=== PATIENT | female | born 1990 | race Caucasian/White ===

== ENCOUNTER 2020-11-08 20:34 | Inpatient (IN) | payer OTHER, SELFPAY ==
[~2020-11-08] VITALS: Ht 167.6 cm; Wt 72.6 kg
[2020-11-08 21:04] VITALS: BP 109/61
[2020-11-08] MEDS ORDERED: SODIUM CHLORIDE FLUSH 10 ML SYR IVF STA (21:10)
[2020-11-08 21:36] LABS: BASOPHILS % (AUTO) 0.2 % (0.0-2.0); EOSINOPHILS % (AUTO) 0.5 % (0.0-4.0); HEMATOCRIT 34.5 % (36-48); HEMOGLOBIN 11.1 g/dL (12.0-16.0); LYMPHOCYTES # (AUTO) 1.7 K/uL (2.5-16.5); MEAN CORPUSCULAR HEMOGLOBIN 26 pg (27-31); MEAN CORPUSCULAR HGB CONC 32 g/dL (33-37); MEAN CORPUSCULAR VOLUME 82.3 fL (80-94); MONOCYTES # (AUTO) 0.7 K/uL (0.8-1.0); MONOCYTES % (AUTO) 7.7 % (1.7-9.3); NEUTROPHILS # (AUTO) 6.6 K/uL (1.8-7.7); NEUTROPHILS % (AUTO) 72.6 % (42.2-75.2); PLATELET COUNT (AUTO) 237 K/uL (140-450); RED CELL DISTRIBUTION WIDTH 16.1 % (11.6-13.7); WHITE BLOOD COUNT (AUTO) 9.1 K/uL (4.8-10.8)
[2020-11-08 21:48] LABS: ALBUMIN 4.2 g/dL (3.4-5.0); ANION GAP 11.8 (8-16); CARBON DIOXIDE 29.3 mmol/L (21-32); CREATININE 0.6 mg/dL (0.6-1.3); POTASSIUM 4.1 mmol/L (3.5-5.1); TOTAL BILIRUBIN 0.3 mg/dL (0.0-1.0)
--- NOTE | 2020-11-08 22:26 | NUR ---
AMBULATED TO ER BED 4
--- NOTE | 2020-11-08 22:39 | NUR ---
PT BIB SELF FOR C/O LLQ PAIN X 2 DAYS. PT REPORTS FEVER OF 103 YESTERDAY, CONTROLLED WITH P.O. EXCEDRIN. PT REPORTS NAUSEA, DENIES VOMITING OR DIARRHEA. LMP 10/28/20. LAST BM REPORTED TODAY, NORMAL CONSISTENCY. LLQ OG ABDOMEN IS FLAT, SOFT AND TENDER TO TOUCH. DENIES REBOUND TENDERNESS TO RLQ. MED HX: DENIES ALLERGIES: NKA
[2020-11-08 22:57] LABS: APPEARANCE,URINE CLEAR (CLEAR); BILIRUBIN,URINE NEGATIVE (NEGATIVE); BLOOD, URINE NEGATIVE (NEGATIVE); COLOR,URINE YELLOW (YELLOW); LEUKOCYTE ESTERASE ,URINE TRACE (NEGATIVE); NITRITE, URINE NEGATIVE (NEGATIVE); UGLUCOSE NEGATIVE (NEGATIVE)
[2020-11-08 23:18] LABS: RBC,URINE 0-5 /HPF (0-5)
--- NOTE | 2020-11-09 00:11 | NUR ---
PT TAKEN TO CT.
--- NOTE | 2020-11-09 01:55 | NUR ---
SANGITA OF NARES COLLECTED AND HAND GIVEN TO SANDY PLATFORM CONSULTANT.
[2020-11-09] MEDS ORDERED: PIPERACILLIN/TAZOBACTAM 4.5 GM in DEXTROSE 5% 100 ML IV ONE (02:00)
[2020-11-09] MEDS ORDERED: PIPERACILLIN/TAZOBACTAM 4.5 GM VIAL IV ONE (02:03)
[2020-11-09] MEDS ORDERED: HYDROcodone/APAP 5/325 MG 1 TAB TAB PO PRN (02:45)
[2020-11-09] MEDS ORDERED: ONDANSETRON 4 MG/2 ML VIAL IVP PRN (02:45)
[2020-11-09] MEDS ORDERED: ACETAMINOPHEN 325 MG TAB PO PRN (02:45)
[2020-11-09] MEDS ORDERED: POTASSIUM CHLORIDE 10 MEQ TABER PO PRN (02:45)
[2020-11-09] MEDS ORDERED: MORPHINE SULFATE 4 MG/ML SYR IVP PRN (02:45)
[2020-11-09] MEDS ORDERED: MAGNESIUM OXIDE 400 MG TAB PO PRN (02:45)
[2020-11-09] MEDS ORDERED: MAG SULF 2000 MG/WATER PREMIX 50 ML IV PRN (02:45)
[2020-11-09] MEDS ORDERED: KCL 20 MEQ/WATER INJ PREMIX 200 ML IV PRN (02:45)
--- NOTE | 2020-11-09 03:11 | NUR ---
Patient will be admitted to care of MD KULWINDER. Admited to [facility]. Will go to room 104B. Belongings list completed. Report to REY TORIBIO.
--- NOTE | 2020-11-09 03:11 | NUR ---
RECEIVED PHONE REPORT FROM ER NURSE, WAITING PATIENT TRANSFER TO UNIT.
--- NOTE | 2020-11-09 03:15 | NUR ---
PT TAKEN TO [facility] RM 104 BY GERARD RICHARDSON VIA [employer].
--- NOTE | 2020-11-09 03:20 | NUR ---
RECEIVED PATIENT TRANSFER TO UNIT BY WHEELCHAIR. PATIENT AMBULATES WITH STEADY GAIT INDEPENDENTLY TO BED. CC LEFT SIDE ABD PAIN AND FEVER X2 DAYS. DX DIVERTICULITIS WITH MICROPERFORATION. A/A/O X4. RESPIRATORY EVEN AND UNLABORED, ON ROOM AIR, LUNG SOUNDS CLEAR TO AUSCULTATE. NO SIGN OF RESPIRATORY DISTRESS. BOWEL SOUND ACTIVE TO 4 QUADRANTS, ABD FLAT, NON DISTENDED, TENDER TO PALPATION ON LEFT SIDE. SKIN WARM, DRY, NON DIAPHORETIC. IV ON RIGHT AC 20G, INTACT AND PATENT, SALINE LOCK. PATIENT DENIES PAIN OR DISCOMFORT AT THIS TIME. ABLE TO MAKE NEEDS KNOWN. MRSA COLLECTED. ORIENTED TO ROOM AND UNIT ROUTINE. CALL LIGHT WITHIN REACH. WILL CONTINUE TO MONITOR.
[2020-11-09 03:30] VITALS: BP 101/61
[2020-11-09] MEDS: NACL 0.9% 1,000 ML IV SCH ×2 (03:40→15:15)
--- NOTE | 2020-11-09 03:40 | NUR ---
SCHEDULE MEDICATION GIVEN WITH EDUCATION, PATIENT VERBALIZED UNDERSTANDING. NO SIGN OF DISTRESS NOTED. CALL LIGHT WITHIN REACH. WILL CONTINUE TO MONITOR.
[2020-11-09] MEDS: LEVOFLOXACIN 500 MG/D5W PREMIX 100 ML IV SCH (03:54)
[2020-11-09] MEDS: metroNIDAZOLE 500 MG/NS PREMIX 100 ML IV SCH ×3 (05:27→20:41)
--- NOTE | 2020-11-09 05:27 | NUR ---
SCHEDULE MEDICATION GIVEN WITH EDUCATION. PATIENT VERBALIZED UNDERSTANDING. CALL LIGHT WITHIN REACH. WILL CONTINUE TO MONITOR.
--- NOTE | 2020-11-09 07:25 | NUR ---
ENDORSED PATIENT TO AM NURSE FOR CONTINUITY OF CARE. PATIENT IS STABLE.
--- NOTE | 2020-11-09 07:30 | NUR ---
PT ENDORSED BY APARTMENT MAINTENANCE NURSE FOR CONTINUITY OF CARE, POC DISCUSSED. PT IS RESTING COMFORTBLY IN BED WITH NO S/S OF ACUTE DISTRESS. PT DENIES PAIN AT THIS TIME. PT IS ON ROOM AIR WITH CHEST RISING AND FALLING EVEN AND UNLABORED. PT IS A&OX4. PT HAS A R AC 20 G RUNNING NS @80ML. ALL SAFETY MEASURES IN PLACE, CALL LIGHT WITHIN REACH. WILL CONTINUE TO MONITOR.
--- NOTE | 2020-11-09 08:25 | NUR ---
MORNING ROUNDS. PT REPORTS PAIN TOLERABLE. EDUCATION PROVIDED TO PT ON ENSURING PAIN DOESN'T BECOME UNBEARABLE AND CALLING THE NURSING STATION IF IT INCREASES. PT REPORTS ALL NEEDS ARE MET AT THIS TIME. ALL SAFETY MEASURES IN PLACE, CALL LIGHT WITHIN REACH. WILL CONTINUE TO MONITOR.
--- NOTE | 2020-11-09 08:52 | NUR ---
PATIENT HAS BEEN SCREENED AND CATEGORIZED LOW NUTRITION RISK. PATIENT WILL BE SEEN WITHIN 7 DAYS OF ADMISSION. 11/15/[address]
--- NOTE | 2020-11-09 10:46 | NUR ---
PT IS RESTING COMFORTABLE IN BED WITH NO SIGN OF ACUTE DISTRESS. REPORTS PAIN TOLERABLE. ALL SAFETY MEASURES IN PLACE, CALL LIGHT WITHIN REACH. WILL CONTINUE TO MONITOR.
[2020-11-09 10:51] VITALS: BP 97/59
[2020-11-09 16:00] VITALS: BP 103/62
--- NOTE | 2020-11-09 16:04 | NUR ---
DC PLANN[age] YRS OLD FEMALE PATIENT WAS ADMITTED FROM HOME WITH A DX OF DIVERTICULITIS WITH MICRO PERFORATION. PT HAS NO MEDICAL HX. CT ABD SHOWED ACUTE DIVERTICULITIS OF THE DISTAL DESCENDING COLON WITH A SMALL AREA OF CONTAINED PERFORATION. ADMINISTERED IVF, IV ABX LEVAQUIN. CONSULTED WITH SURGEON DR CHRISTY DC PLAN TO RETURN HOME WHEN STABLE. CM TO FOLLOW Addendum: 11/10/20 at 1114 by Regine Bowens RN DC PLANNING: RECEIVED A CALL FROM [facility] [phone] SPOKE WITH ALDO, STATED WE ARE OUT OF THE NETWORK AND PATIENT NEEDS TO BE TRANSFERRED TO THE CONTRACTED FACILITY. DISCUSSED WITH DR JONAS AND THE PLAN IS TO DC TOMORROW. PATIENT SEEN BY DR CHRISTY SURGEON NO SURGERY NEEDED, ADVANCED DIET, IF SHE TOLERATE TO DC TOMORROW. PER ALDO WILL DISCUSS IT WITH HER SENIOR RESEARCH MANAGER AND FOR SOME REASON IF WE DON'T DC TO NOTIFY THEM TO ARRANGE TRANSFER. SHE PROVIDED PENDING AUTH# [id number].
--- NOTE | 2020-11-09 17:33 | NUR ---
PT REPORTS PAIN TOLERABLE, PT EDUCATION PROVIDED ON ENSURING PAIN DOES NOT BECOME OUT OF CONTROL. PT REPORTS NAUSEA AND AGREES TO WANTING PRN ANTIEMETIC. ADMINISTERED PER MD ORDER, PT EDUCATION PROVIDED. PT VERBALIZED UNDERSTANDING. PT IV INTACT AND PATENT. PT REPORTS IV SITE UNCOMFORTABLE, EDUCATION PROVIDED ON IF WE REMOVE THIS IV, WE WILL NEED TO START ANOTHER FOR THE FLUIDS AND IV ABX. PT VERBALIZED SHE IS OKAY RIGHT NOW AND WILL CALL IF THE IV BECOMES UNBEARABLE. ALL SAFETY MEASURES IN PLACE, FAMILY MEMBER AT BEDSIDE. CALL LIGHT WITHIN REACH. WILL CONTINUE TO MONITOR.
--- NOTE | 2020-11-09 19:07 | NUR ---
PT ENDORSED TO BLENDING PLANT OPERATOR NURSE FOR CONTINUITY OF CARE, POC DISCUSSED. PT IN STABLE CONDITION.
--- NOTE | 2020-11-09 19:08 | NUR ---
RECD. RESTING IN BED, AWAKE, A/OX4. RESPIRATION EVEN AND UNLABORED. CONVERSING WITH VISITOR AT HE BEDSIDE. IV OF NS AT 80 ML/HR INFUSING, RIGHT AC G20. PLEASANT AND COOPERATIVE. AMBULATORY TO THE BR. NPO EXCEPT MEDICATIONS. MEDICATIONS FOR THE NIGHT DISCUSSED WITH PATIENT. VERBALIZED UNDERSTANDING. DENIES PAIN 0/10.
[2020-11-09 20:00] VITALS: BP 108/64
--- NOTE | 2020-11-09 20:10 | NUR ---
ENDORSED TO REY RADER FOR CONTINUITY OF CARE.
--- NOTE | 2020-11-09 20:10 | NUR ---
REPORT GIVEN BY AUGUSTO FOR CONTINUITY OF CARE. PT IN BED RESTING IN NO ACUTE DISTRESS.CALL LIGHT WITHIN REACH.
--- NOTE | 2020-11-09 20:45 | NUR ---
MEDS ADMINISTERED ORDERED.
[2020-11-10] MEDS: NACL 0.9% 1,000 ML IV SCH ×2 (03:45→16:15)
[2020-11-10] MEDS: LEVOFLOXACIN 500 MG/D5W PREMIX 100 ML IV SCH (03:58)
[2020-11-10] MEDS: metroNIDAZOLE 500 MG/NS PREMIX 100 ML IV SCH ×3 (05:31→21:55)
[2020-11-10 06:36] LABS: BASOPHILS % (AUTO) 0.4 % (0.0-2.0); EOSINOPHILS # (AUTO) 0.1 K/uL (0-0.4); EOSINOPHILS % (AUTO) 1.6 % (0.0-4.0); HEMATOCRIT 28.1 % (36-48); HEMOGLOBIN 9.3 g/dL (12.0-16.0); LYMPHOCYTES # (AUTO) 2.2 K/uL (2.5-16.5); LYMPHOCYTES % (AUTO) 40.5 % (20.5-51.1); MEAN CORPUSCULAR HEMOGLOBIN 27 pg (27-31); MEAN CORPUSCULAR HGB CONC 33 g/dL (33-37); MEAN CORPUSCULAR VOLUME 81.7 fL (80-94); MONOCYTES # (AUTO) 0.4 K/uL (0.8-1.0); NEUTROPHILS # (AUTO) 2.7 K/uL (1.8-7.7); NEUTROPHILS % (AUTO) 49.5 % (42.2-75.2); PLATELET COUNT (AUTO) 177 K/uL (140-450); PROTHROMBIN TIME 11.3 secs (10.8-13.4); RED BLOOD CELL COUNT(AUTO) 3.44 MIL/uL (4.20-5.40); RED CELL DISTRIBUTION WIDTH 15.8 % (11.6-13.7); WHITE BLOOD COUNT (AUTO) 5.4 K/uL (4.8-10.8)
[2020-11-10 06:45] LABS: ALBUMIN 3.2 g/dL (3.4-5.0); ANION GAP 11.1 (8-16); CARBON DIOXIDE 26.6 mmol/L (21-32); CHOL/HDL RATIO 2.1 (1-4.5); CREATININE 0.6 mg/dL (0.6-1.3); MAGNESIUM 1.7 mg/dL (1.8-2.4); POTASSIUM 3.7 mmol/L (3.5-5.1); TOTAL BILIRUBIN 0.4 mg/dL (0.0-1.0)
--- NOTE | 2020-11-10 07:34 | NUR ---
ENDORSED TO AM SHIFT NURSE FOR CONTINUITY OF CARE. PT IN STABLE CONDITION.
--- NOTE | 2020-11-10 07:34 | NUR ---
RECEIVED REPORT FROM BLANKER PRESS OPERATOR NURSE FOR CONTINUITY OF CARE, POC DISCUSSED. PT IS ASLEEP IN BED WITH NO S/S OF ACUTE DISTRESS. PT VERBALIZED ALL NEEDS ARE MET AND DENIES PAIN AT THIS TIME. PT HAS A R AC 20 G RUNNING NS AT 80ML. PT IS ON ROOM AIR WITH CHEST RISING AND FALLING EVEN AND UNLABORED. PT IS NPO PENDING CONSULT FROM DR. CHRISTY, FOR POSSIBLE SURGERY. ALL SAFETY MEASURES IN PLACE, CALL LIGHT WITHIN REACH. WILL CONTINUE TO MONITOR.
[2020-11-10 08:00] VITALS: BP 90/54
--- NOTE | 2020-11-10 09:02 | NUR ---
MADE ROUNDS ON PT, DR. CHRISTY CONSULTED WITH PATIENT, NO INDICATION FOR SURGICAL INTERVENTION AT THIS TIME. DR. CHRISTY ORDER FULL LIQUID DIET FOR BREAKFAST AND LUNCH, THEN ADVANCE TO SOFT DIET FOR DINNER. DR. CHRISTY ALSO RECOMMENDED PT FOLLOW UP WITH HIM AFTER DC. POSSIBLE DC DISCUSSED FOR TOMORROW. PT PROVIDED WITH FULL LIQUID BREAKFAST. DISCUSSED POC WITH PT, PT VERBALIZED UNDERSTANDING. PT DENIES PAIN AT THIS TIME. PT VERBALIZED ALL NEEDS ARE MET. EDUCATION PROVIDED LABOR CUSTODIAN LIGHT, PT VERBALIZED UNDERSTANDING. ALL SAFETY MEASURES IN PLACE, CALL LIGHT WITHIN REACH. WILL CONTINUE TO MONITOR.
--- NOTE | 2020-11-10 12:34 | NUR ---
ROUNDED ON PT AND ADMINISTERED YAKELIN ABX TO PT. PT VERBALIZED ALL NEEDS ARE MET. PT DENIES PAIN AT THIS TIME. FAMILY MEMBER AT BEDSIDE. PT AWARE OF POC. PT TOLERATED FULL LIQUIDS. ALL SAFETY MEASURES IN PLACE, CALL LIGHT WITHIN REACH. WILL CONTINUE TO MONITOR.
--- NOTE | 2020-11-10 15:24 | NUR ---
ROUNDED ON PT, PT VERBALIZED ALL NEEDS ARE MET. BROUGHT PT A NEW CONTAINER OF WATER. PT DENIES PAIN AT THIS. ALL NEEDS ARE MET. SAFETY MEASURES IN PLACE, CALL LIGHT WITHIN REACH. WILL CONTINUE TO MONITOR.
[2020-11-10 16:00] VITALS: BP 104/45
--- NOTE | 2020-11-10 19:35 | NUR ---
PT ENDORSED TO SPEECH AND LANGUAGE CLINICIAN NURSE FOR CONTINUITY OF CARE IN STABLE CONDITION
[2020-11-10 20:00] VITALS: BP 93/51
[2020-11-11] MEDS: NACL 0.9% 1,000 ML IV SCH (00:43)
[2020-11-11] MEDS: LEVOFLOXACIN 500 MG/D5W PREMIX 100 ML IV SCH (03:54)
[2020-11-11 04:00] VITALS: BP 95/55
[2020-11-11] MEDS: metroNIDAZOLE 500 MG/NS PREMIX 100 ML IV SCH ×2 (05:36→13:27)
[2020-11-11 06:40] LABS: BASOPHILS % (AUTO) 0.3 % (0.0-2.0); EOSINOPHILS # (AUTO) 0.1 K/uL (0-0.4); EOSINOPHILS % (AUTO) 1.6 % (0.0-4.0); HEMATOCRIT 29.1 % (36-48); HEMOGLOBIN 9.5 g/dL (12.0-16.0); LYMPHOCYTES # (AUTO) 2.1 K/uL (2.5-16.5); LYMPHOCYTES % (AUTO) 38.2 % (20.5-51.1); MEAN CORPUSCULAR HEMOGLOBIN 27 pg (27-31); MEAN CORPUSCULAR HGB CONC 33 g/dL (33-37); MEAN CORPUSCULAR VOLUME 82.2 fL (80-94); MONOCYTES # (AUTO) 0.4 K/uL (0.8-1.0); MONOCYTES % (AUTO) 7.1 % (1.7-9.3); NEUTROPHILS # (AUTO) 2.9 K/uL (1.8-7.7); NEUTROPHILS % (AUTO) 52.8 % (42.2-75.2); PLATELET COUNT (AUTO) 198 K/uL (140-450); RED BLOOD CELL COUNT(AUTO) 3.54 MIL/uL (4.20-5.40); RED CELL DISTRIBUTION WIDTH 15.7 % (11.6-13.7); WHITE BLOOD COUNT (AUTO) 5.4 K/uL (4.8-10.8)
[2020-11-11 06:49] LABS: ALBUMIN 3.1 g/dL (3.4-5.0); ANION GAP 10.3 (8-16); CARBON DIOXIDE 26.5 mmol/L (21-32); CREATININE 0.6 mg/dL (0.6-1.3); MAGNESIUM 1.5 mg/dL (1.8-2.4); POTASSIUM 3.8 mmol/L (3.5-5.1); TOTAL BILIRUBIN 0.3 mg/dL (0.0-1.0)
[2020-11-11 06:59] LABS: PROTHROMBIN TIME 11.2 secs (10.8-13.4)
--- NOTE | 2020-11-11 07:15 | NUR ---
RECEIVED REPORT FROM FREIGHT FLAGMAN RN FOR CONTINUITY OF CARE. PATIENT AWAKE AND ALERT IN BED. BREATHING IS EVEN AND UNLABORED NO DISTRESS NOTED. ALL SAFETY MEASURES IN PLACE. WILL CONTINUE TO MONITOR.
--- NOTE | 2020-11-11 07:28 | NUR ---
PT REPORT GIVEN AT BEDSIDE. PT IN STABLE CONDITION
--- NOTE | 2020-11-11 08:38 | NUR ---
PATIENT IN BED. MAGNESIUM LEVEL 1.5. MAGNESIUM PRN GIVEN PER MD ORDERS.
[2020-11-11] MEDS ORDERED: LEVO750T51 PO (09:15)
[2020-11-11] MEDS ORDERED: METR500T1 PO (09:15)
[2020-11-11] MEDS ORDERED: PSYL0.4C2 PO (09:18)
--- NOTE | 2020-11-11 10:05 | NUR ---
PATIENT ALERT AND AWAKING WITH MOM. NO ACUTE DISTRESS NOTED.
--- NOTE | 2020-11-11 12:22 | NUR ---
PATIENT AWAKE IN BED WATCHING TV. BREATHING IS EVEN AN UNLABORED. ALL SAFETY MEASURES IN PLACE. WILL CONTINUE TO MONITOR.
--- NOTE | 2020-11-11 14:12 | NUR ---
PATIENT LAYING IN BED. BREATHING IS EVEN AND UNLABORED. NO ACUTE DISTRESS NOTED. ALL SAFETY MEASURES IN PLACE. WILL CONTINUE TO MONITOR.
--- NOTE | 2020-11-11 15:25 | NUR ---
PATIENT SITTING UP IN BED. PATIENT TALKING ON PHONE. NO ACUTE DISTRESS NOTED. ALL SAFETY MEASURES IN PLACE. WILL CONTINUE TO MONITOR.
[2020-11-11 16:00] VITALS: BP 114/70
--- NOTE | 2020-11-11 16:36 | NUR ---
PATIENT AWAKE AND ALERT. BREATHING EVEN AND UNLABORED. PATIENT INSTRUCTION AND EDUCATION GIVEN. PATIENT SIGNED ALL DOCUMENTS NEEDED. PATIENT VERBALIZE UNDERSTANDING. IV REMOVED AND INTACT. ALL PERSONAL BELONGING TAKEN BY PATIENT. PATIENT AND MOTHER WALKED TO LOBBY.
== END 2020-11-11 16:40 | disposition home or self-care (01) | DRG 392 ==
LOC: MED 20:34 → MTU 11-09 02:50
PROVIDERS: ADMIT Family Medicine; ATTEND Family Medicine
DX: K57.92 Diverticulitis of intestine, part unspecified, without perforation or abscess without bleeding (principal); E44.1 Mild protein-calorie malnutrition; N39.0 Urinary tract infection, site not specified; Z20.822 Contact with and (suspected) exposure to COVID-19; D64.9 Anemia, unspecified; E83.42 Hypomagnesemia; E78.2 Mixed hyperlipidemia; M51.36 Other intervertebral disc degeneration, lumbar region; Z68.25 Body mass index [BMI] 25.0-25.9, adult
CPT/HCPCS: 36415; 80053; 81001; 83036; 83690; 83735; 85025; 85610; 87081; 87086; 96365; 99285; J1956; J2405; J2543; J3475; J3490